=== PATIENT | female | born 1960 | race Caucasian/White ===

== ENCOUNTER 2016-07-30 12:40 | Emergency (ER) | payer OTHER ==
[2016-07-30 12:54] VITALS: BP 132/83
== END 2016-07-30 14:43 | disposition home or self-care (01) ==
LOC: ED 12:40
DX: R07.89 Other chest pain (principal); I10 Essential (primary) hypertension; F17.200 Nicotine dependence, unspecified, uncomplicated; Z71.6 Tobacco abuse counseling
CPT/HCPCS: 99406

== ENCOUNTER 2019-12-20 07:23 | Emergency (ER) | payer OTHER, SELFPAY ==
[~2019-12-20] VITALS: Ht 154.9 cm; Wt 66.7 kg
[2019-12-20 07:25] VITALS: Ht 154.9 cm; Wt 66.7 kg
[2019-12-20 08:10] VITALS: BP 122/72
== END 2019-12-20 08:10 | disposition home or self-care (01) ==
LOC: ED 07:23
DX: J12.9 Viral pneumonia, unspecified (principal); Z20.828 Contact with and (suspected) exposure to other viral communicable diseases
CPT/HCPCS: U0003